=== PATIENT | female | born 2000 | race Hispanic/Latino ===

== ENCOUNTER 2019-04-22 04:03 | Inpatient (IN) | payer BC ==
[2019-04-22] MEDS ORDERED: BUTORPHANOL 1 MG/ML INJ IV PRN (04:19)
[2019-04-22] MEDS ORDERED: METHYLERGONOVINE 0.2MG/ML AMP IM PRN (04:19)
[2019-04-22] MEDS ORDERED: PROMETHAZINE 25 MG/ML VIAL IM PRN (04:19)
[2019-04-22] MEDS ORDERED: MEPERIDINE HCL 25 MG/0.5 ML IV PRN (04:19)
[2019-04-22] MEDS ORDERED: Ringers Lactate 1,000 ML IV PRN (04:19)
[2019-04-22] MEDS ORDERED: CARBOPROST TROME 250 MCG/ML IM PRN (04:19)
[2019-04-22 04:56] VITALS: BMI 37.4
[2019-04-22] MEDS ORDERED: Ringers Lactate 1,000 ML IV SCH (05:00)
[2019-04-22] MEDS ORDERED: OXYTOCIN/LR 20 UNIT/1,000 ML BAG IV SCH ×2 (05:00→16:00)
[2019-04-22 05:05] LABS: Absolute Lymphocytes (CBC) 2.2 K/uL (0.7-4.9); Basophils % 0.5 % (0-1.3); Hematocrit 32.1 % (36.0-45.0); MPV 9.6 fL (7.6-11.3); RBC Red Blood Cell Count 3.92 M/uL (3.86-4.86)
[2019-04-22 05:58] LABS: Urine Appearance CLOUDY; Urine Bilirubin NEGATIVE (NEG); Urine Blood NEGATIVE (NEG); Urine Color YELLOW; Urine Glucose NEGATIVE (NEG); Urine Microscopic Reflex ORDER UMIC; Urine Protein TRACE (NEG); Urine Specific Gravity 1.025 (1.005-1.030); Urine Urobilinogen 0.2 mg/dL (0.2-1.0); Urine pH 6.5 (5.0-7.0)
[2019-04-22 06:15] LABS: Urine Culture Reflex Order REFLEXED
[2019-04-22 06:16] LABS: Calcium Oxalate Crystals- Ur MANY (NONE SEEN); Urine Bacteria >50 /HPF (<20); Urine RBC NONE SEEN /HPF (NONE SEEN)
[2019-04-22] MEDS ORDERED: FENTANYL/BUPIVACAINE/NS/PF 200 MCG/100 ML BAG EP PRN (10:08)
[2019-04-22] MEDS ORDERED: FENTANYL CITR 100 MCG/2 ML IV ONE (10:10)
[2019-04-22] MEDS ORDERED: BUPIVACAINE 0.25% PF 30 ML VIAL IV ONE (10:10)
--- NOTE | 2019-04-22 10:26 | PREOPHP ---
Date of Admission: 04/22/2019 This is a 19-year-old primigravida, 39 weeks, Rh negative, immune to Rubella. Negative beta strep sc reen. Patient is 2 to 2.5 cm. Vertex well applied. 70% effaced. Rupture of membranes, clear fluid . Anticipate more rapid progress as the day goes on. Full labor talk given. Anticipate delivery so metime later today. BELLA/KORINA Voice ID: [id number]
[2019-04-22] MEDS ORDERED: CARBOPROST TROME 250 MCG/ML IM ONE (14:30)
[2019-04-22] MEDS ORDERED: METHYLERGONOVINE 0.2MG/ML AMP IM ONE (14:30)
--- NOTE | 2019-04-22 14:50 | PN ---
The patient is now on 18 milliunits of Pitocin, [place] regularly. She is now 7.5 cm, 90% to 100 % effaced, baby is occiput posterior. She will start doing pelvic rocks. Baby is about 0 station at this point. I think the baby rotates, will have delivery reasonably soon. She is very numb and can not even tell if she is having contractions when the time comes to push. If she cannot push effectiv usman, we will cut the epidural back the maintenance of 10 to 8. BELLA/KORINA Voice ID: [id number] Report ID: [id number]
--- NOTE | 2019-04-22 15:47 | PN ---
Patient has had epidural now. She is quite comfortable. Left leg is slightly heavy. We will see as the labor progresses. If we need to back off on the epidural but right now, we will leave it at the maintenance dose of 10 mL/h. She is 4.5, 90%, 0 station. I think the baby is occiput anterior, but not 100% sure on that at this point. We will check her again in an hour or so. Continue to increas e the Pitocin to get firmer contractions. BELLA/SANDEEL Voice ID: [id number] Report ID: [id number]
[2019-04-22] MEDS ORDERED: BISACODYL 10 MG RECTAL SUPP RECT PRN (15:52)
[2019-04-22] MEDS ORDERED: Oxycodone HCl/Acetaminophen 1 TAB TAB PO PRN ×2 (15:52)
[2019-04-22] MEDS ORDERED: DOCUSATE NA/SENNA CONC 1 TAB PO PRN (15:52)
[2019-04-22] MEDS ORDERED: ACETAMINOPHEN 500 MG TAB PO PRN (15:52)
[2019-04-22] MEDS ORDERED: DIPHENHYDRAMINE 25 MG TAB/CAP PO PRN (15:52)
[2019-04-22] MEDS ORDERED: IBUPROFEN 600 MG TAB PO PRN (15:52)
[2019-04-22] MEDS: METHYLERGONOVINE 0.2 MG TAB PO SCH (20:00)
[2019-04-22 20:56] LABS: RPR (Rapid Plasma Reagin) NON-REACT (NON-REACT)
--- NOTE | 2019-04-22 20:57 | OP ---
Surgeon: Rashawn Pino MD A 19-year-old primigravida, 39 weeks, followed antepartum without complications. The patient is note d to be Rh negative, has received RhoGAM, immune to Rubella, negative beta strep screen, 39 weeks, ad mitted for delivery. Approximately 2 cm on admission rupture of membranes at 2.5 cm clear fluid. Pa tient went to more active labor pattern, received Stadol initially 1 mg IV, then epidural anesthesia second stage somewhere between 30 and 45 minutes. Spontaneous vaginal delivery of an estimated 6 eileen nds plus female, Apgars 9 and 9. One small first-degree superficial tear on the right labia minora. One zmhcnh-xg-fdace stitch 2-0 chromic. Schultze delivery of the placenta, which was inspected and noted to be intact and normal. 300 mL or less blood loss estimate. Tolerated all procedures well. Final Diagnoses: Term intrauterine , 39 weeks. Labor induction. Vaginal delivery. Epidur al anesthesia. RhoGAM pending. BELLA/KORINA Voice ID: [id number] Report ID: [id number]
[2019-04-23] MEDS: METHYLERGONOVINE 0.2 MG TAB PO SCH ×3 (04:00→07:35)
[2019-04-23] MEDS ORDERED: Tdap (Diph,Pertuss(Acell),Tet Vac) 0.5 ML SYR IMVAC ONE (08:34)
[2019-04-23] MEDS ORDERED: Ringers Lactate 1,000 ML IV ONE (08:51)
[2019-04-23 13:04] VITALS: TEMP 97.7
[2019-04-23 16:35] VITALS: BP 115/72
--- NOTE | 2019-04-23 21:43 | DS ---
Date of Discharge: 04/23/2019 History: A 19-year-old primigravida, 39 weeks. Delivery of a 6-pound 9-ounce female. Apgars 9 and 9. Epidural anesthesia. Small first-degree laceration, requiring 1 stitch, 2-0 chromic. J Carlos bell of the placenta, which inspected and noted to be intact and normal. Less than 300 mL blood l oss, although she had mild hypotonus following and was started on Methergine, has done well. Lochia is normal. She is Rh negative, will receive RhoGAM before she leaves. She will get Tdap administrat ion as well. Requests no analgesics on dismissal. Final Diagnoses: Term intrauterine . Vaginal delivery. Epidural anesthesia. RhoGAM and T dap pending. BELLA/MODL Voice ID: [id number] Report ID: [id number]
[2019-04-27 03:16] LABS: HBsAG Nonreactive (Nonreactive)
== END 2019-04-23 17:30 | disposition home or self-care (01) | DRG 807 ==
LOC: 2ND-WC 04:03
PROVIDERS: ADMIT Specialist; ATTEND Specialist
PROC: 10907ZC Drainage of Amniotic Fluid, Therapeutic from Products of Conception, Via Natural or Artificial Opening (ICD-10-PCS; 2019-04-21)
PROC: 10E0XZZ Delivery of Products of Conception, External Approach (ICD-10-PCS; principal; 2019-04-22)
PROC: 0HQ9XZZ Repair Perineum Skin, External Approach (ICD-10-PCS; 2019-04-22)
PROC: 3E0234Z Introduction of Serum, Toxoid and Vaccine into Muscle, Percutaneous Approach (ICD-10-PCS; 2019-04-22)
DX: O70.0 First degree perineal laceration during delivery (principal); Z37.0 Single live birth; O26.893 Other specified pregnancy related conditions, third trimester; Z67.91 Unspecified blood type, Rh negative; Z3A.39 39 weeks gestation of pregnancy
CPT/HCPCS: 36415; 81003; 81015; 85025; 85461; 86592; 86850; 86901; 87086; 87088; 87340; 90471; 90715; J0595; J2210; J2550; J2590; J2790; J3010; J7120

== ENCOUNTER 2022-02-06 04:15 | Inpatient (IN) | payer OTHER ==
[~2022-02-06 04:15] MED LIST: BUTORPHANOL 1 MG/ML INJ IV PRN; CARBOPROST TROME 250 MCG/ML IM PRN; METHYLERGONOVINE 0.2MG/ML AMP IM PRN; OXYTOCIN/LR 20 UNIT/1,000 ML BAG IV SCH; PROMETHAZINE INJ 25 MG/ML AMP IM PRN; Ringers Lactate 1,000 ML IV PRN; Ringers Lactate 1,000 ML IV SCH
[2022-02-06 05:00] VITALS: BMI 37.6
[2022-02-06 05:11] LABS: Absolute Lymphocytes (CBC) 2.3 K/uL (0.7-4.9); Hematocrit 33.3 % (36.0-45.0); Lymphocytes % 24.5 % (15.3-44.8); MCV 82.1 fL (80-100); MPV 8.7 fL (7.6-11.3); RBC Red Blood Cell Count 4.06 M/uL (3.86-4.86)
[2022-02-06 05:32] LABS: Urine Bacteria <20 /HPF (<20); Urine Mucus Slight /HPF (None Seen); Urine RBC <5 /HPF (None Seen)
[2022-02-06 05:36] LABS: Specific Gravity 1.026 (1.005-1.030); Urine Bilirubin NEGATIVE (Negative); Urine Blood Negative (Negative); Urine Clarity Clear (Clear); Urine Color Light-Yellow (Yellow); Urine Glucose NEGATIVE (Negative); Urine Protein TRACE (Negative); Urine Urobilinogen Normal (Normal); Urine pH 6.5 (5.0-7.0)
--- NOTE | 2022-02-06 07:33 | PREOPHP ---
Date of Admission: 02/06/2022 History Of Present Illness: This is a 21-year-old, 2, para 1, at 39 weeks for elective induc tion. Patient is now 3 to 3.5 cm. Baby is -1 station. Rupture of membranes, clear fluid. She is o n light Pitocin. Beta strep was negative. Full labor talk given. Anticipate delivery sometime late r today. The patient has been anemic throughout the and that continues on admission but no t severe. Mother is Rh negative. She has had RhoGAM during the and will be qualified for RhoGAM in the period. Family History: Father with hypertension. Maternal grandmother with myocardial infarction. Same gr andmother with a stroke. Father with diabetes. Maternal grandfather with colon cancer. Past Medical History: No serious illnesses. No surgeries. Allergies: NO ALLERGIES. Social History: Does not smoke. Physical Examination: HEENT: Clear. Pupils equal, round, and reactive to light and accommodation. Conjunctivae well perf used. No oral, lingual, or buccal lesions. Chest and Lungs: Clear. Heart: Without murmurs, thrills, heaves, or rubs. Breasts: Not examined today but without masses on previous visits. Extremities: Clear without edema, cyanosis, or clubbing. Pelvic: Exam as stated. Anticipate delivery sometime later today. COVID negative. Strep negative. BELLA/KORINA Voice ID: [id number]
[2022-02-06] MEDS ORDERED: FENTANYL CITR 100 MCG/2 ML IV ONE (09:47)
[2022-02-06] MEDS ORDERED: FENTANYL/BUPIVACAINE/NS/PF 200 MCG/100 ML BAG EP PRN (09:47)
[2022-02-06] MEDS ORDERED: BUPIVACAINE 0.25% PF 30 ML VIAL IV ONE (09:49)
[2022-02-06] MEDS ORDERED: LIDOCAINE 1% MPF 30 ML VIAL ONE (12:18)
--- NOTE | 2022-02-06 12:33 | PN ---
The patient has her epidural cannot move her right leg very well. Without contractions, sh e is about 8.5 to 9. We will move the maintenance dose from 10 to 8, so she can push more effectivel y. She should be ready to start pushing, I think within the next 0.5 hour or so. She is not aware o f her contractions, so we will wait until the baby comes down a little bit more to begin active pushi ng. Baby looks good on the monitor. Everything else and vital Signs normal. KATALINAC/MODL Voice ID: [id number] Report ID: [id number]
[2022-02-06] MEDS ORDERED: ACETAMINOPHEN 500 MG TAB PO PRN (13:28)
[2022-02-06] MEDS ORDERED: Oxycodone HCl/Acetaminophen 1 TAB TAB PO PRN ×2 (13:28)
[2022-02-06] MEDS ORDERED: DOCUSATE NA/SENNA CONC 1 TAB PO PRN (13:28)
[2022-02-06] MEDS ORDERED: DIPHENHYDRAMINE 25 MG TAB/CAP PO PRN (13:28)
[2022-02-06] MEDS ORDERED: BISACODYL 10 MG RECTAL SUPP PR PRN (13:28)
[2022-02-06] MEDS ORDERED: OXYTOCIN/LR 20 UNIT/1,000 ML BAG IV SCH (14:00)
[2022-02-06] MEDS: IBUPROFEN 600 MG TAB PO PRN (16:20)
[2022-02-06] MEDS ORDERED: Rho(D) IG (HUMAN) 300 MCG SYR IM ONE (17:18)
--- NOTE | 2022-02-07 02:04 | DN ---
Surgeon: Rashawn Pino MD 21-year-old, 2, para 1, 39 weeks' gestation, 3 cm this morning. Rupture of membranes, clear fluid. The patient went to an active labor pattern at 5 cm. Requested and received epidural anesthe santiago, which gave good effect; in fact so much that we had to cut the maintenance dose back somewhat, s o she could even be aware of her contractions. Second stage of about 20 minutes with spontaneous vag inal delivery of a 7-pound 15-ounce male , Apgars 9 and 9. Very small first-degree tear more t rand a laceration. 3-0 chromic was placed, but this was not sufficient to stop the oozing, so 2-0 chr omic [id number] stitch was placed and effected hemostasis. Schultze delivery of the placenta, w hich was inspected and noted to be intact and normal. Less than 300 cc blood loss. Rh negative, jesus manuel l be qualified for RhoGAM. Immune to Rubella. Negative strep. Negative COVID. Final Diagnoses: Term intrauterine at 39 weeks. Rh negative. RhoGAM pending. Spontaneou s vaginal delivery. Epidural anesthesia. BELLA/KORINA Voice ID: [id number] Report ID: [id number]
[2022-02-07 02:16] LABS: RPR (Rapid Plasma Reagin) NON-REACT (NON-REACT)
[2022-02-07] MEDS: IBUPROFEN 600 MG TAB PO PRN (12:53)
[2022-02-07 14:49] VITALS: BP 103/71; TEMP 97.5
--- NOTE | 2022-02-08 11:04 | DS ---
Date of Discharge: 02/07/2022 Sharon Gunn is a 21-year-old, 2, para 1, 39 weeks' gestation, delivered of a 7-pound 15-ounc e male infant, Apgars 9 and 9, had very small mucosal type tear at the posterior fourchette, but this has required 2 to 3 stitches of 3-0 chromic and then 2-0 chromic to achieve hemostasis. Schultze de livernatacha of the placenta was inspected and noted to be intact and normal less than 300 cc blood loss. Rh positive, immune to Rubella, negative strep. Negative COVID. , afebrile, ambulating, v oiding. Lochia is normal. Will report back to my office in 4 to 6 weeks for followup. To report an y fever of 100 degrees or more severe pain heavy bleeding, or any other type of abnormalities. She i s Rh negative and RhoGAM is on the unit. She knows to get it before she leaves. She already had her Tdap immunization during the . Requests no analgesics on dismissal. Final Diagnoses: Term intrauterine at 39 weeks, labor induction, vaginal delivery. RhoGAM pending. BELLA/SANDEEL Voice ID: [id number] Report ID: [id number]
== END 2022-02-07 15:10 | disposition home or self-care (01) | DRG 807 ==
LOC: 2ND-WC 04:15
PROVIDERS: ADMIT Specialist; ATTEND Specialist
PROC: 10E0XZZ Delivery of Products of Conception, External Approach (ICD-10-PCS; principal; 2022-02-07)
DX: O70.9 Perineal laceration during delivery, unspecified (principal); Z37.0 Single live birth; Z3A.39 39 weeks gestation of pregnancy; Z23 Encounter for immunization; Z20.822 Contact with and (suspected) exposure to COVID-19
CPT/HCPCS: 36415; 81001; 85025; 85461; 86592; 86850; 86900; 86901; 87340; J2210; J2590; J2790; J3010; J7120; U0003